=== PATIENT | female | born 1960 | race African-American/Black ===

== ENCOUNTER 2022-03-12 06:52 | Emergency (ER) | payer OTHER ==
[~2022-03-12] VITALS: Ht 170.2 cm; Wt 100.0 kg
[2022-03-12 07:27] VITALS: BP 130/111
== END 2022-03-12 09:39 | disposition home or self-care (01) ==
LOC: ER 06:52
DX: B34.9 Viral infection, unspecified (principal); Z20.822 Contact with and (suspected) exposure to COVID-19
CPT/HCPCS: 87426; 99283; C9803